=== PATIENT | female | born 1990 | race Asian ===

== ENCOUNTER 2017-06-26 11:51 | Emergency (ER) | payer OTHER ==
[~2017-06-26] VITALS: Ht 167.6 cm; Wt 54.3 kg
[2017-06-26 13:08] LABS: HEMATOCRIT 41.6 % (34.6-47.8); HEMOGLOBIN 13.8 g/dL (11.7-16.4)
[2017-06-26] MEDS ORDERED: GADOBUTROL 10 MMOL/10 ML VIAL ONE (13:33)
[2017-06-26 14:31] VITALS: BP 114/62
== END 2017-06-26 14:38 | disposition home or self-care (01) ==
LOC: ED 14:20
DX: N92.6 Irregular menstruation, unspecified (principal)
CPT/HCPCS: 36415; 70553; 84146; 84703; 85025; 99285; A9585